=== PATIENT | female | born 2000 | race American Indian/Alaskan Native ===

== ENCOUNTER 2025-11-12 01:02 | Emergency (ER) | payer SELFPAY ==
[2025-11-12 01:17] VITALS: BP 105/60; PULSE 110; RESP 16; TEMP 37.5; O2SAT 98; BMI 41.3
--- NOTE | 2025-11-12 01:24 | EKG_ITS ---
[address] [address] Test Date: 2025-11-12 Pat Name: [facility] Department: Room: Gender: Female [employer]er: SALMA : 2000 Requested By: Order Number: [id number] Reading MD: Gamaliel May Measurements Intervals [place] Rate: 103 P: 21 UT: 134 QRS: 58 QRSD: 78 T: 1 QT: 330 QTc: 432 Interpretive Statements Sinus tachycardia Electronically Signed On 11-12-2025 15:06:26 PST by Gamaliel May
--- NOTE | 2025-11-12 01:28 | ED_ITS ---
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 Here tonight with her , both have been recently coughing for the last few days, patient had chest pain. No vaginal bleeding or leaking of fluid. No fevers or chills. Related Data Allergies Allergy/AdvReac Type Severity Reaction Status Date / Time No Known Drug Allergies Allergy Verified 11/12/25 01:20 Patient History Social History Smoking Status: Never smoker Smoking Status: Never smoker Exam Narrative Exam Narrative: GENERAL: Well-developed patient, cooperative, no distress HEAD: Atraumatic. Normocephalic. EYES: Pupils equal round and reactive. Extraocular motions intact. No scleral icterus. No injection or drainage. ENT: Nose without bleeding, purulent drainage. Throat without erythema, tonsillar hypertrophy or exudate. Airway patent. NECK: Trachea midline. Non tender CARDIOVASCULAR: Slight increased rate, regular rhythm, without murmurs, gallops, or rubs. RESPIRATORY: Clear to auscultation. Breath sounds equal bilaterally. No wheezes, rales, or rhonchi. GASTROINTESTINAL: Obese, difficult to feel fundal height, not obviously tender. EXTREMITIES: No edema or joint tenderness. BACK: Nontender without deformity or crepitance. No flank tenderness. NEURO: AOx3. Motor functions grossly nonfocal. SKIN: No rash or erythema of visible areas Initial Vital Signs Initial Vital Signs: Vital Signs Temperature 99.5 F 11/12/25 01:17 Pulse Rate 110 H 11/12/25 01:17 Respiratory Rate 16 11/12/25 01:17 Blood Pressure 105/60 11/12/25 01:17 Pulse Oximetry 98 11/12/25 01:17 Oxygen Delivery Method Room Air 11/12/25 01:17 Course Orders Ordered: ED Orders 11/12/25 01:24 EKG-12 Lead Stat 11/12/25 01:29 XR chest 2V Stat 11/12/25 01:30 Covid-19 + FLU A/B + RSV - PCR Stat 11/12/25 02:10 Ictotest Urine Stat Urine Culture Stat Urine Microscopic Stat 11/12/25 02:15 CBC Auto Diff [Complete Blood Count AUTO DIFF] Stat CMP [Comprehensive Metabolic Panel] Stat Sodium Chloride (Normal Saline 0.9%) 1,000 mls @ 1,000 mls/hr IV BOLUS ONE Stop: 11/12/25 03:03 Last Admin: 11/12/25 02:32 Dose: 1,000 mls/hr Discontinued Medications Acetaminophen (Acetaminophen 325 Mg Tablet) 650 mg PO NOW ONE Stop: 11/12/25 02:25 Last Admin: 11/12/25 02:32 Dose: 650 mg Vital Signs Vital signs: Vital Signs - 8 hr 11/12/25 01:17 11/12/25 01:35 11/12/25 01:35 Temperature 99.5 F Pulse Rate 110 H 105 H Respiratory Rate 16 Blood Pressure 105/60 115/59 L Pulse Oximetry 98 98 Oxygen Delivery Method Room Air 11/12/25 01:58 11/12/25 01:58 11/12/25 02:00 Temperature Pulse Rate 108 H 109 H Respiratory Rate Blood Pressure 111/55 L Pulse Oximetry 97 97 Oxygen Delivery Method 11/12/25 02:00 11/12/25 02:36 11/12/25 02:36 Temperature Pulse Rate 102 H Respiratory Rate 18 Blood Pressure 112/55 L 125/59 L Pulse Oximetry 98 Oxygen Delivery Method Room Air MDM - Chest Pain Lab Data Attestation: I reviewed the patient's lab results. Lab results narrative: White blood cell count 45980, hemoglobin 8.9, platelets adequate. Glucose 96. Normal renal function, serum CO2, electrolytes. Liver functions normal. Urinalysis negative. COVID influenza RSV swab negative. 11/12/25 02:15 11/12/25 02:15 Labs: Lab Results 11/12/25 11/12/25 11/12/25 Range/Units 01:30 02:10 02:15 WBC 11.5 H (4.5-11.0) X10^3/uL RBC 4.11 (4.0-5.2) X10^6/uL Hgb 8.9 L (12.0-16.0) g/dL Hct 27.9 L (36-46) % MCV 67.9 L (80-100) fL MCH 21.6 L (26-34) PG MCHC 31.9 (30-36) % RDW 17.2 H (11.6-14.8) % Plt Count 193 (150-400) X10^3/uL Neut % (Auto) 83.6 H (50-75) % Lymph % (Auto) 8.1 L (25-40) % [place] % (Auto) 7.4 (3-14) % Eos % (Auto) 0.7 L (2-4) % Baso % (Auto) 0.2 (0-2) % Neut # (Auto) 9600 H (6139-6402) /uL Lymph # (Auto) 900 L (0056-5376) /uL [place] # (Auto) 800 (0-900) /uL Eos # (Auto) 100 (0-450) /uL Baso # (Auto) 0 (0-100) /uL Sodium 136 L (137-145) mmol/L Potassium 3.7 (3.4-5.1) mmol/L Chloride 106 (98-107) mmol/L Carbon Dioxide 22 (22-32) mmol/L BUN 5 L (7-17) mg/dL Creatinine 0.56 (0.52-1.04) mg/dL Estimated GFR > 60 (>60) mL/min BUN/Creatinine Ratio 8.9 (6-22) Glucose 96 (70-99) mg/dL Calcium 8.9 (8.4-10.2) mg/dL Total Bilirubin 0.8 (0.2-1.3) mg/dL AST 18 (14-36) IU/L ALT 10 (<35) IU/L Alkaline Phosphatase 92 (38-126) U/L Total Protein 8.2 (6.3-8.2) g/dL Albumin 3.6 (3.5-5.0) g/dL Globulin 4.6 H (1.7-4.1) g/dL Albumin/Globulin Ratio 0.8 L (1.0-2.8) Ur Bilirubin Confirm Negative (Negative) Urine RBC None seen (0-5/HPF) Urine WBC 0-1/hpf (0-5/HPF) Ur Squamous Epith Cells 0-1 /hpf (0-5/HPF) Amorphous Sediment 1+ Urine Bacteria Occasional (0-1) (None) Ur Culture Indicated? Cult not indicated Vol Urine Centrifuged 10ml (spun) SARS-CoV-2 (PCR) Negative (Negative) Influenza A (RT-PCR) Flu a negative (NEGATIVE) Influenza B (RT-PCR) Flu b negative (NEGATIVE) RSV (PCR) Negative (Negative) Urine Dip Bedside Urine Glucose Negative Bedside Urine Bilirubin + 1 Bedside Urine Ketone - Negative Urine Specific [place] 1.010 Bedside Urine Occult Blood - Negative Bedside Urine pH 8.0 Bedside Urine Protein +/- 15 Bedside Urine Urobilinogen 2+ 4mg Bedside Urine Nitrite - Negative Bedside Urine Leukocytes +/- 15 Esterase ECG Data Attestation: I personally reviewed and interpreted this ECG as follows: Interpretation: 0131, sinus tachycardia with rate 103, no obvious ST segment elevation or depression changes. [place] 134, QRS 78, QTC 432. MDM Narrative Medical decision making narrative: 25-year-old female currently , known mediastinal mass status post biopsy with unclear tissue diagnosis but no cancer diagnosis known at this time, awaiting Cardiothoracic surgery consultation Tino thompson. She and her have recent cough symptoms. Having chest pain and some shortness of breath. No wheeze. Afebrile, sirs screen negative, lungs clear, normal oxygenation. Chest x-ray shows mediastinal mass, no mentioned of any comparison studies. See radiology report. Lab data: White blood cell count 47334, hemoglobin 8.9, platelets adequate. Glucose 96. Normal renal function, serum CO2, electrolytes. Liver functions normal. Urinalysis negative. COVID influenza RSV swab negative. Records review: Patient had imaging study robby Zheng showing mediastinal mass, status post needle biopsy, necrosing tissue noted on pathology report blood of unclear etiology, no mention of any diagnosis of cancer, no mentioned of diagnosis of tuberculosis or fungal infection. Chest pain might be related to recent cough, could be related to mediastinal mass, particularly if there is necrosis tissue on needle biopsy, there might be some discomfort with necrotic chest mass, awaiting further workup with Cardiothoracic surgery, nontoxic afebrile at this time noted. Follow up with CT surgery, follow up with her OB provider, advised to contact both providers early in November to see about moving up follow up appointments. Return precautions discussed. Discharged home with family. Discharge Plan Departure Patient Disposition: Home Clinical Impression: Upper respiratory infection, Mass of mediastinum, Activity Restrictions/Additional Instructions: Chest pain in context of recent cough, has been in household with similar recent cough symptoms. However you have known mediastinal chest mass, found on imaging, status post biopsy that did not confirm any cancer but is unclear diagnosis at this time, awaiting further follow up with Cardiothoracic surgery at [facility]. Chest x-ray tonight showed mediastinal mass, but no obvious pneumonia or fluid overload heart failure like changes. COVID influenza RSV viral swab was negative. Your chest mass might be the cause of chest discomfort, however you seemed to have symptoms of acute viral upper respiratory infection, along with your . Additional studies EKG and blood tests not suggestive of heart attack at this time. Take Tylenol as needed for discomfort. Follow up with your Cardiothoracic surgeon as planned. Follow up with your obstetrics provider as planned. Return to this/nearest emergency department for any change worsening symptoms or concerns prior. Stand Alone Forms: Patient Portal/API
--- NOTE | 2025-11-12 01:29 | DI.RAD.S_ITS ---
PROCEDURE: XR CHEST 2V INDICATIONS: dyspnea, chest pain, cough TECHNIQUE: 2 views of the chest were acquired. COMPARISON: None. FINDINGS: Surgical changes and devices: None. Lungs and pleura: Lungs are clear. No pleural effusions or pneumothorax. Mediastinum: There is prominence of the superior mediastinal shadow.. Heart size is normal. Bones and chest wall: No suspicious bony abnormalities. Soft tissues appear unremarkable. IMPRESSION: Superior right mediastinal shadow. While this could be projectional, further evaluation with CT is recommended for evaluation of potential mass. Dictated by: Patsy Castellanos M.D. on 11/12/2025 at 1:58 Approved by: Patsy Castellanos M.D. on 11/12/2025 at 1:59
[2025-11-12 01:35] VITALS: BP 115/59; PULSE 105; O2SAT 98
[2025-11-12 01:58] VITALS: BP 111/55; PULSE 108; O2SAT 97
[2025-11-12 02:00] VITALS: BP 112/55; PULSE 109; O2SAT 97
[2025-11-12 02:14] LABS: Influenza A - CEPHEID Flu A NEGATIVE (NEGATIVE); Influenza B - CEPHEID Flu B NEGATIVE (NEGATIVE)
[2025-11-12 02:19] LABS: COVID-19 CEPHEID 4-PLEX PCR Negative (Negative)
[2025-11-12] MEDS: SODIUM CHLORIDE 0.9% 1,000 ML 1000 ML IV (02:32)
[2025-11-12] MEDS: ACETAMINOPHEN 325 MG TABLET 650 MG PO (02:32)
[2025-11-12 02:34] LABS: Alanine Aminotransferase 10 IU/L (<35); Albumin 3.6 g/dL (3.5-5.0); Albumin Globulin Ratio 0.8 (1.0-2.8); Alkaline Phosphatase 92 U/L (38-126); Blood Urea Nitrogen 5 mg/dL (7-17); Calcium 8.9 mg/dL (8.4-10.2); Carbon Dioxide 22 mmol/L (22-32); Chloride 106 mmol/L (98-107); Estimated Glomerular Filt Rate > 60 mL/min (>60); Globulin 4.6 g/dL (1.7-4.1); Glucose 96 mg/dL (70-99); HEMOLYSIS < 15 (0-50); Potassium 3.7 mmol/L (3.4-5.1); Sodium 136 mmol/L (137-145); Total Protein 8.2 g/dL (6.3-8.2)
[2025-11-12 02:36] VITALS: BP 125/59; PULSE 102; RESP 18; O2SAT 98
[2025-11-12 02:37] LABS: Add Manual Diff / Slide Review NO; Hematocrit 27.9 % (36-46); Hemoglobin 8.9 g/dL (12.0-16.0); Lymphocytes Absolute Auto 900 /uL (1100-4500); Mean Corpuscular HGB Conc 31.9 % (30-36); Mean Corpuscular Hemoglobin 21.6 PG (26-34); Mean Corpuscular Volume 67.9 fL (80-100); Platelet Count 193 X10^3/uL (150-400)
[2025-11-12 02:46] LABS: Ictotest Urine Negative (Negative)
[2025-11-12 02:47] LABS: Culture Indicated Urine Cult Not Indicated
[2025-11-12 03:44] LABS: Anisocytosis 1+; Microcytosis 1+
== END 2025-11-12 03:17 | disposition home or self-care (01) ==
PROVIDERS: Emergency Provider Emergency Medicine
DX: O99.891 Other specified diseases and conditions complicating pregnancy (principal); J06.9 Acute upper respiratory infection, unspecified; J98.59 Other diseases of mediastinum, not elsewhere classified; R06.02 Shortness of breath; R50.9 Fever, unspecified; R07.89 Other chest pain; R05.9 Cough, unspecified; Z3A.00 Weeks of gestation of pregnancy not specified
CPT/HCPCS: 36415; 71046; 80053; 81003; 81015; 85025; 87086; 87637; 93005; 96360; 99284; J7030